=== PATIENT | female | born 1955 | race Caucasian/White ===

== ENCOUNTER 2019-03-01 11:11 | Emergency (ER) | payer BC, OTHER, SELFPAY ==
--- NOTE | 2019-03-01 11:50 | RAD REPORT ---
EXAM DESCRIPTION: RAD - Shoulder Right 2 View - 03/01/2019 11:40 am CLINICAL HISTORY: fall Trauma, pain COMPARISON: No comparisons FINDINGS: Moderately displaced fracture the proximal right humerus is seen. The humeral head compone nt of the fracture appears anteriorly subluxed relative to the glenoid. The bones are osteopenic.
[2019-03-01] MEDS ORDERED: NA CHLORIDE 0.9% 1,000 ML ONE (12:15)
--- NOTE | 2019-03-01 12:37 | ER ---
Nurse's Notes [facility] Name: Tamika Kline Age: 63 yrs Sex: Female : 1955 Arrival Date: 03/01/2019 Time: 11:13 Bed 5 Private MD: Diagnosis: 2-part displaced fracture of surgical neck of right humerus;Fall down embankment (decker) Presentation: 03/01 11:21 Presenting complaint: Patient states: She was running and she slipped on a stick and aj1 landed on her right shoulder. Patient has had pain and been unable to move right shoulder since then. Transition of care: patient was not received from another setting of care. Onset of symptoms was March 01, 2019. Risk Assessment: Do you want to hurt yourself or someone else? Patient reports no desire to harm self or others. Initial Sepsis Screen: Does the patient meet any 2 criteria? No. Patient's initial sepsis screen is negative. Does the patient have a suspected source of infection? No. Patient's initial sepsis screen is negative. Care prior to arrival: None. 11:21 Method Of Arrival: EMS: [facility] aj 11:21 Acuity: TARA 3 aj1 Triage Assessment: 11:26 General: Appears uncomfortable, Behavior is calm, cooperative, appropriate for age. aj1 Pain: Complains of pain in anterior aspect of right shoulder and posterior aspect of right shoulder Pain does not radiate. Pain currently is 2 out of 10 on a pain scale. at worst was 10 out of 10 on a pain scale. Aggravated by repositioning. 11:26 EENT: No deficits noted. Neuro: Level of Consciousness is awake, alert, obeys commands, aj1 Oriented to person, place, time, situation. Cardiovascular: No deficits noted. Patient's skin is warm and dry. Respiratory: No deficits noted. Airway is patent Respiratory effort is even, unlabored, Respiratory pattern is regular, symmetrical. GI: No signs and/or symptoms were reported involving the gastrointestinal system. : No signs and/or symptoms were reported regarding the genitourinary system. Derm: Skin is pink, warm \T\ dry. normal. Musculoskeletal: Range of motion: limited in right shoulder. Historical: - Allergies: 11:26 Iodine; aj1 11:26 Tape; aj1 - Home Meds: 11:26 None [Active]; aj1 - PMHx: 11:26 None; aj1 - PSHx: 11:26 None; aj1 - Immunization history:: Flu vaccine is not up to date. - Social history:: Smoking status: Patient/guardian denies using tobacco. - Ebola Screening: : Patient denies travel to an Ebola-affected area in the 21 days before illness onset. - Family history:: not pertinent. Screenin:12 Abuse screen: Denies threats or abuse. Denies injuries from another. Nutritional aj1 screening: No deficits noted. Tuberculosis screening: No symptoms or risk factors identified. 13:09 Fall Risk Fall in past 12 months (25 points). No secondary diagnosis (0 pts). No IV (0 aj1 pts). Ambulatory Aid- None/Bed Rest/Nurse Assist (0 pts). Gait- Normal/Bed Rest/Wheelchair (0 pts) Mental Status- Oriented to own ability (0 pts). Total Leung Fall Scale indicates Low Risk Score (25-44 pts). As available Patient and Family Educated on Fall Prevention Program and strategies. Assessment: 12:12 Reassessment: see triage assessment. aj1 12:30 Reassessment: Patient appears in no apparent distress at this time. No changes from aj1 previously documented assessment. Patient and/or family updated on plan of care and expected duration. Pain level reassessed. Patient is alert, oriented x 3, equal unlabored respirations, skin warm/dry/pink. 13:09 Reassessment: Patient discharge pending patient receiving X-Ray images. aj1 Vital Signs: 11:26 BP 170 / 87; Pulse 74; Resp 18; Temp 98.0; Pulse Ox 100% on R/A; Weight 54.43 kg (R); aj1 Height 5 ft. 4 in. (162.56 cm) (R); Pain 2/10; 11:26 Body Mass Index 20.60 (54.43 kg, 162.56 cm) aj1 ED Course: 11:13 Patient arrived in ED. bd 11:24 Triage completed. aj1 11:26 Arm band placed on. aj1 11:28 Valentin Moctezuma MD is Attending Physician. gayla 11:41 Shoulder Right (2 View) XRAY In Process Unspecified. EDMS 12:12 Carmenza Coleman, RN is Primary Nurse. aj1 12:12 Patient has correct armband on for positive identification. aj1 12:12 No provider procedures requiring assistance completed. aj1 12:12 Inserted saline lock: 22 gauge in left hand, using aseptic technique. aj1 12:35 Dmitry Gurrola MD is Referral Physician. gayla 13:10 IV discontinued, intact, bleeding controlled, No redness/swelling at site. Pressure aj1 dressing applied. Administered Medications: 12:16 Drug: NS 0.9% 1000 ml Route: IV; Rate: 1 bolus; Site: left hand; aj1 13:09 Follow up: IV Status: Completed infusion; IV Intake: 500ml aj1 13:08 Not Given (Patient Refused): TORadol 30 mg IVP once aj1 13:09 Not Given (Patient Refused): morphine 4 mg IVP once; RASS on ADMIN: Combtv4, Very aj1 Agttd3, Agttd2, Rstlss1, AlertClm0, Drwsy-1, Lt Sdtn-2, Mod Sdtn-3, Dp Sdtn-4, UnArsble-5 13:09 Not Given (Patient Refused): Zofran 4 mg IVP once; over 2 minutes aj1 Intake: 13:09 IV: 500ml; Total: 500ml. aj1 Outcome: 12:36 Discharge ordered by . gayla 13:10 Discharged to home aj1 13:10 Condition: good 13:10 Discharge instructions given to patient, Instructed on discharge instructions, follow up and referral plans. no drinking with medication, no driving heavy equipment, medication usage, Demonstrated understanding of instructions, follow-up care, medications, Prescriptions given X 2. 13:30 Patient left the ED. aj1 Signatures: Dispatcher [employer] EDMS Mell Palomo Angela RN RN aj1 Valentin Moctezuma MD MD cha Corrections: (The following items were deleted from the chart) 11:28 11:26 Pain: Complains of pain in anterior aspect of right shoulder and posterior aspect aj1 of right shoulder aj1
--- NOTE | 2019-03-01 12:37 | EDPHYS ---
Physician Documentation [facility] Name: Tamika Kline Age: 63 yrs Sex: Female : 1955 Arrival Date: 03/01/2019 Time: 11:13 Bed 5 Private MD: ED Physician Valentin Moctezuma HPI: 03/01 11:31 This 63 yrs old Female presents to ER via EMS with complaints of right gayla shoulder pain after fall. 11:31 The patient or guardian complains of decreased range of motion, pain. right shoulder. gayla Context: resulted from a fall, playing sports, The patient experiences decreased range of motion, The patient notes a deformity. Onset: The symptoms/episode began/occurred just prior to arrival, this morning. Modifying factors: the symptoms are alleviated by remaining still, The symptoms are aggravated by movement. Associated signs and symptoms: The patient has no apparent associated signs or symptoms. Historical: - Allergies: 11:26 Iodine; aj1 11:26 Tape; aj1 - Home Meds: 11:26 None [Active]; aj1 - PMHx: 11:26 None; aj1 - PSHx: 11:26 None; aj1 - Immunization history:: Flu vaccine is not up to date. - Social history:: Smoking status: Patient/guardian denies using tobacco. - Ebola Screening: : Patient denies travel to an Ebola-affected area in the 21 days before illness onset. - Family history:: not pertinent. ROS: 11:31 Constitutional: Negative for fever, chills, and weight loss, Eyes: Negative for injury, gayla pain, redness, and discharge, ENT: Negative for injury, pain, and discharge, Neck: Negative for injury, pain, and swelling, Cardiovascular: Negative for chest pain, palpitations, and edema, Respiratory: Negative for shortness of breath, cough, wheezing, and pleuritic chest pain, Abdomen/GI: Negative for abdominal pain, nausea, vomiting, diarrhea, and constipation, Back: Negative for injury and pain, : Negative for injury, bleeding, discharge, and swelling, Skin: Negative for injury, rash, and discoloration, Neuro: Negative for headache, weakness, numbness, tingling, and seizure, Psych: Negative for depression, anxiety, suicide ideation, homicidal ideation, and hallucinations, Allergy/Immunology: Negative for hives, rash, and allergies, Endocrine: Negative for neck swelling, polydipsia, polyuria, polyphagia, and marked weight changes, Hematologic/Lymphatic: Negative for swollen nodes, abnormal bleeding, and unusual bruising. 11:31 MS/extremity: Positive for decreased range of motion, pain, tenderness, of the anterior aspect of right shoulder and posterior aspect of right shoulder. Exam: 11:31 Constitutional: This is a well developed, well nourished patient who is awake, alert, gayla and in no acute distress. Head/Face: Normocephalic, atraumatic. Eyes: Pupils equal round and reactive to light, extra-ocular motions intact. Lids and lashes normal. Conjunctiva and sclera are non-icteric and not injected. Cornea within normal limits. Periorbital areas with no swelling, redness, or edema. ENT: Nares patent. No nasal discharge, no septal abnormalities noted. Tympanic membranes are normal and external auditory canals are clear. Oropharynx with no redness, swelling, or masses, exudates, or evidence of obstruction, uvula midline. Mucous membranes moist. Neck: Trachea midline, no thyromegaly or masses palpated, and no cervical lymphadenopathy. Supple, full range of motion without nuchal rigidity, or vertebral point tenderness. No Meningismus. Chest/axilla: Normal chest wall appearance and motion. Nontender with no deformity. No lesions are appreciated. Cardiovascular: Regular rate and rhythm with a normal S1 and S2. No gallops, murmurs, or rubs. Normal PMI, no JVD. No pulse deficits. Respiratory: Lungs have equal breath sounds bilaterally, clear to auscultation and percussion. No rales, rhonchi or wheezes noted. No increased work of breathing, no retractions or nasal flaring. Abdomen/GI: Soft, non-tender, with normal bowel sounds. No distension or tympany. No guarding or rebound. No evidence of tenderness throughout. Back: No spinal tenderness. No costovertebral tenderness. Full range of motion. Skin: Warm, dry with normal turgor. Normal color with no rashes, no lesions, and no evidence of cellulitis. Neuro: Awake and alert, GCS 15, oriented to person, place, time, and situation. Cranial nerves II-XII grossly intact. Motor strength 5/5 in all extremities. Sensory grossly intact. Cerebellar exam normal. Normal gait. Psych: Awake, alert, with orientation to person, place and time. Behavior, mood, and affect are within normal limits. 11:31 Musculoskeletal/extremity: ROM: limited active range of motion due to pain, limited passive range of motion due to pain, Circulation is intact in all extremities. Sensation intact. Compartment Syndrome exam of affected extremity: is normal. DVT Exam: negative Homans' sign noted on exam, no appreciated bluish discoloration, no erythema, no increased warmth, pain, swelling, tenderness. Vital Signs: 11:26 BP 170 / 87; Pulse 74; Resp 18; Temp 98.0; Pulse Ox 100% on R/A; Weight 54.43 kg (R); aj1 Height 5 ft. 4 in. (162.56 cm) (R); Pain 06/14; 11: Body Mass Index 20.60 (54.43 kg, 162.56 cm) [facility] MDM: 11:28 Patient medically screened. [facility] 11:34 Data reviewed: vital signs, nurses notes, radiologic studies, plain films. [facility] 03/01 11:13 Order name: Shoulder Right (2 View) XRAY; Complete Time: 12:24 03/01 12:37 Order name: Ice pack; Complete Time: 13:07 [facility] Administered Medications: 12:16 Drug: NS 0.9% 1000 ml Route: IV; Rate: 1 bolus; Site: left hand; [facility] 13:09 Follow up: IV Status: Completed infusion; IV Intake: 500ml [facility] 13:08 Not Given (Patient Refused): TORadol 30 mg IVP once [facility] 13:09 Not Given (Patient Refused): morphine 4 mg IVP once; RASS on ADMIN: Combtv4, Very aj1 Agttd3, Agttd2, Rstlss1, AlertClm0, Drwsy-1, Lt Sdtn-2, Mod Sdtn-3, Dp Sdtn-4, UnArsble-5 13:09 Not Given (Patient Refused): Zofran 4 mg IVP once; over 2 minutes [facility] Disposition: 03/01/19 12:36 Discharged to Home. Impression: 2-part displaced fracture of surgical neck of right humerus, Fall down embankment (hill). - Condition is Stable. - Discharge Instructions: Humerus Fracture Treated With Immobilization, Shoulder Pain, Humerus Fracture Treated With Immobilization, [id number], Shoulder Pain, [id number]. - Prescriptions for Ibuprofen 600 mg Oral Tablet - take 1 tablet by ORAL route every 6 hours As needed take with food; 20 tablet. Tylenol- Codeine #3 300-30 mg Oral Tablet - take 2 tablets by ORAL route every 6 hours As needed; 24 tablet. - Medication Reconciliation Form, Thank You Letter, Antibiotic Education, Prescription Opioid Use form. - Follow up: Private Physician; When: 2 - 3 days; Reason: Recheck today's complaints, Continuance of care, Re-evaluation by your physician. Follow up: Dmitry Gurrola MD; When: Today; Reason: Recheck today's complaints, Continuance of care, Re-evaluation by your physician. - Problem is new. - Symptoms have improved. Signatures: Dispatcher [employer] Carmenza Triana RN RN aj1 Valentin Moctezuma MD MD cha Corrections: (The following items were deleted from the chart) 12:37 12:36 03/01/2019 12:36 Discharged to Home. Impression: 2-part displaced fracture of gayla surgical neck of right humerus. Condition is Stable. Forms are Medication Reconciliation Form, Thank You Letter, Antibiotic Education, Prescription Opioid Use. Follow up: Private Physician; When: 2 - 3 days; Reason: Recheck today's complaints, Continuance of care, Re-evaluation by your physician. Follow up: Dmitry Gurrola; When: Today; Reason: Recheck today's complaints, Continuance of care, Re-evaluation by your physician. Problem is new. Symptoms have improved. [facility] 13:30 12:37 03/01/2019 12:36 Discharged to Home. Impression: 2-part displaced fracture of aj1 surgical neck of right humerus; Fall down embankment (hill). Condition is Stable. Forms are Medication Reconciliation Form, Thank You Letter, Antibiotic Education, Prescription Opioid Use. Follow up: Private Physician; When: 2 - 3 days; Reason: Recheck today's complaints, Continuance of care, Re-evaluation by your physician. Follow up: Dmitry Gurrola; When: Today; Reason: Recheck today's complaints, Continuance of care, Re-evaluation by your physician. Problem is new. Symptoms have improved. [facility]
[2019-03-01 13:41] VITALS: BP 170/87; TEMP 98; O2SAT 100
== END 2019-03-01 13:30 | disposition home or self-care (01) ==
LOC: ER 11:11
DX: S42.221A 2-part displaced fracture of surgical neck of right humerus, initial encounter for closed fracture (principal); W01.0XXA Fall on same level from slipping, tripping and stumbling without subsequent striking against object, initial encounter; Y93.89 Activity, other specified; Y92.9 Unspecified place or not applicable
CPT/HCPCS: 73030; 96360; 99284; J7030